=== PATIENT | female | born 1965 | race Caucasian/White ===

== ENCOUNTER → 2017-01-31 | Outpatient (CLI) | payer BC ==
[~2017-01-31] MED LIST: AMLO5TAB PO; ATOR10TA PO; NAPR220C11 PO; TRAN4TAB11 PO; VITAMIN B6 PO
== END ==
LOC: WC.BC 11:17
DX: Z12.31 Encounter for screening mammogram for malignant neoplasm of breast (principal); N64.59 Other signs and symptoms in breast
CPT/HCPCS: 77063; G0202